=== PATIENT | female | born 1990 | race Asian ===

== ENCOUNTER 2016-11-02 00:30 | Inpatient (IN) | payer SELFPAY ==
[~2016-11-02] VITALS: Ht 154.9 cm; Wt 73.5 kg
[2016-11-02] MEDS ORDERED: MISOPROSTOL 25 MCG TAB ONE ×2 (02:50→07:10)
[2016-11-02] MEDS ORDERED: OXYTOCIN 20 UNITS in LACTATED RINGERS 1,000 ML IV SCH (02:53)
[2016-11-02] MEDS ORDERED: IBUPROFEN 800 MG TAB PO PRN (02:55)
[2016-11-02] MEDS ORDERED: NALBUPHINE 10 MG/ML AMP IVP PRN (02:55)
[2016-11-02] MEDS ORDERED: PROMETHAZINE 25 MG/ML VIAL IVP PRN (02:55)
[2016-11-02] MEDS ORDERED: METHYLERGONOVINE 0.2 MG/ML AMP IM PRN (02:55)
[2016-11-02] MEDS ORDERED: CARBOPROST 250 MCG/ML AMP IM PRN (02:55)
[2016-11-02] MEDS ORDERED: MISOPROSTOL 25 MCG TAB VG SCH (03:00)
[2016-11-02 03:01] LABS: BASOPHILS # (AUTO) 0.1 K/uL (0.00-0.22); BASOPHILS % (AUTO) 1.7 % (0.0-2.0); EOSINOPHILS # (AUTO) 0.1 K/uL (0-0.4); EOSINOPHILS % (AUTO) 2.1 % (0.0-4.0); HEMATOCRIT 35.8 % (36-48); HEMOGLOBIN 11.6 g/dL (12.0-16.0); LYMPHOCYTES % (AUTO) 20.7 % (20.5-51.1); MEAN CORPUSCULAR HEMOGLOBIN 30 pg (27-31); MEAN CORPUSCULAR HGB CONC 33 g/dL (33-37); MEAN CORPUSCULAR VOLUME 93 fL (80-94); MONOCYTES # (AUTO) 0.4 K/uL (0.8-1.0); MONOCYTES % (AUTO) 9.4 % (1.7-9.3); NEUTROPHILS # (AUTO) 3.2 K/uL (1.8-7.7); NEUTROPHILS % (AUTO) 66.1 % (42.2-75.2); PLATELET COUNT (AUTO) 139 K/uL (140-450); RED BLOOD CELL COUNT(AUTO) 3.87 MIL/uL (4.20-5.40); RED CELL DISTRIBUTION WIDTH 12.8 % (11.6-13.7); WHITE BLOOD COUNT (AUTO) 4.8 K/uL (4.8-10.8)
[2016-11-02 03:03] LABS: APPEARANCE,URINE CLEAR (CLEAR); BILIRUBIN,URINE NEGATIVE (NEGATIVE); BLOOD, URINE NEGATIVE (NEGATIVE); COLOR,URINE YELLOW (YELLOW); LEUKOCYTE ESTERASE ,URINE NEGATIVE (NEGATIVE); NITRITE, URINE NEGATIVE (NEGATIVE); PH,URINE 6.5 (5.0-9.0); UGLUCOSE NEGATIVE (NEGATIVE)
[2016-11-02 03:05] LABS: ANION GAP 12.5 (8-16); CARBON DIOXIDE 23.3 mmol/L (21-32); CREATININE 0.5 mg/dL (0.6-1.3); POTASSIUM 3.8 mmol/L (3.5-5.1)
[2016-11-02 03:12] LABS: ALBUMIN 3.1 g/dL (3.4-5.0); TOTAL BILIRUBIN 0.3 mg/dL (0.0-1.0)
[2016-11-02 03:31] VITALS: BP 96/59
--- NOTE | 2016-11-02 08:44 | NUR ---
PATIENT HAS BEEN SCREENED AND CATEGORIZED LOW NUTRITION RISK. PATIENT WILL BE SEEN WITHIN 7 DAYS OF ADMISSION. 11/08/[address]
[2016-11-02] MEDS: LACTATED RINGERS 1,000 ML IV SCH ×2 (10:01→17:41)
[2016-11-02] MEDS ORDERED: OXYTOCIN 10 UNITS/ML VIAL IM ONE (15:00)
[2016-11-02] MEDS ORDERED: NALBUPHINE HYDROCHLORIDE 10 MG/ML VIAL ONE (18:44)
[2016-11-02] MEDS ORDERED: PROMETHAZINE 25 MG/ML VIAL ONE (18:45)
[2016-11-02] MEDS ORDERED: ceFAZolin 1,000 MG VIAL ONE (23:40)
[2016-11-03] MEDS ORDERED: TRIAMCINOLONE 40 MG/ML 5ML VIAL ONE (00:24)
[2016-11-03] MEDS ORDERED: METHYLERGONOVINE 0.2 MG/ML AMP ONE ×2 (00:25→02:07)
[2016-11-03] MEDS ORDERED: OXYTOCIN 10 UNITS/ML VIAL ONE ×2 (00:25→16:53)
[2016-11-03] MEDS ORDERED: MIDAZOLAM 2 MG/2 ML VIAL ONE (00:28)
[2016-11-03] MEDS ORDERED: MORPHINE PRES FREE 10 MG/10 ML AMP IV ONE (00:29)
[2016-11-03] MEDS ORDERED: diphenhydrAMINE 50 MG/ML VIAL IVP PRN ×2 (00:55)
[2016-11-03] MEDS ORDERED: NALBUPHINE 10 MG/ML AMP IVP PRN (00:55)
[2016-11-03] MEDS ORDERED: MEPERIDINE 25 MG/ML SYR IVP PRN (00:55)
[2016-11-03] MEDS ORDERED: NALOXONE 0.4 MG/ML VIAL IVP PRN ×3 (00:55)
[2016-11-03] MEDS ORDERED: ONDANSETRON 4 MG/2 ML VIAL IVP PRN ×2 (00:55)
[2016-11-03] MEDS ORDERED: HYDROmorphone 1 MG/ML AMP IVP PRN (00:55)
[2016-11-03] MEDS ORDERED: diphenhydrAMINE 50 MG/ML VIAL ONE (01:08)
[2016-11-03] MEDS ORDERED: OXYTOCIN 20 UNITS/LR PREMIX 1,000 ML IV ONE (01:08)
[2016-11-03] MEDS ORDERED: OXYTOCIN 20 UNITS in LACTATED RINGERS 1,000 ML IV SCH ×2 (01:10→01:18)
[2016-11-03] MEDS ORDERED: MEASLES, MUMPS, AND RUBELLA 1 VIAL SQVAC PRN (01:20)
[2016-11-03] MEDS ORDERED: TEMAZEPAM 15 MG CAP PO PRN (01:20)
[2016-11-03] MEDS ORDERED: SIMETHICONE 80 MG TAB.CHEW PO PRN (01:20)
[2016-11-03] MEDS ORDERED: TRIMETHOBENZAMIDE 200 MG/2 ML SYR IM PRN (01:20)
[2016-11-03] MEDS ORDERED: IBUPROFEN 800 MG TAB PO PRN (01:20)
[2016-11-03] MEDS ORDERED: oxyCODONE/APAP 5/325 MG 1 TAB TAB PO PRN (01:20)
[2016-11-03] MEDS ORDERED: METHYLERGONOVINE 0.2 MG/ML AMP IM PRN (01:20)
[2016-11-03] MEDS ORDERED: ONDANSETRON 4 MG/2 ML VIAL ONE (01:32)
[2016-11-03] MEDS: KETOROLAC 30 MG/ML VIAL IM/IVP SCH ×3 (06:53→16:59)
[2016-11-03] MEDS: OXYTOCIN 20 UNITS in LACTATED RINGERS 1,000 ML IV SCH ×2 (10:01→16:52)
[2016-11-04 07:12] LABS: BASOPHILS % (AUTO) 0.5 % (0.0-2.0); EOSINOPHILS # (AUTO) 0.1 K/uL (0-0.4); EOSINOPHILS % (AUTO) 1.6 % (0.0-4.0); HEMATOCRIT 32.9 % (36-48); HEMOGLOBIN 10.7 g/dL (12.0-16.0); LYMPHOCYTES # (AUTO) 0.7 K/uL (2.5-16.5); LYMPHOCYTES % (AUTO) 7.8 % (20.5-51.1); MEAN CORPUSCULAR HEMOGLOBIN 30 pg (27-31); MEAN CORPUSCULAR HGB CONC 33 g/dL (33-37); MEAN CORPUSCULAR VOLUME 93 fL (80-94); MONOCYTES # (AUTO) 0.6 K/uL (0.8-1.0); MONOCYTES % (AUTO) 6.9 % (1.7-9.3); NEUTROPHILS # (AUTO) 7.7 K/uL (1.8-7.7); NEUTROPHILS % (AUTO) 83.2 % (42.2-75.2); PLATELET COUNT (AUTO) 132 K/uL (140-450); RED BLOOD CELL COUNT(AUTO) 3.54 MIL/uL (4.20-5.40); RED CELL DISTRIBUTION WIDTH 12.7 % (11.6-13.7); WHITE BLOOD COUNT (AUTO) 9.1 K/uL (4.8-10.8)
[2016-11-04] MEDS ORDERED: BETHANECHOL 25 MG TAB PO ONE (09:00)
--- NOTE | 2016-11-04 10:33 | NUR ---
AWAKE AND ALERT NO PULMONARY DISTRESS NOTED PATIENT WITH AT THIS TIME PATIENT REQUEST INCENTIVE SPIROMETRY THERAPY AT A LATER TIME
--- NOTE | 2016-11-04 11:37 | NUR ---
AWAKE AND ALERT NO PULMONARY DISTRESS NOTED TOLERATED INCENTIVE SPIROMETRY THERAPY WELL WITHOUT INCIDENT ENCOURAGE PATIENT WITH ACKNOWLEDGEMENT TO USE INCENTIVE SPIROMETRY EVERY 1-2 HOURS WHILE AWAKE
[2016-11-04] MEDS: HYDROcodone/APAP 5/325 MG 1 TAB TAB PO PRN (20:16)
[2016-11-04] MEDS: DOCUSATE SOD/SENNA 50/8.6 MG 1 TAB PO SCH (21:00)
[2016-11-05] MEDS: HYDROcodone/APAP 5/325 MG 1 TAB TAB PO PRN ×2 (10:39→18:51)
[2016-11-05] MEDS: DOCUSATE SOD/SENNA 50/8.6 MG 1 TAB PO SCH (20:44)
[2016-11-06] MEDS: HYDROcodone/APAP 5/325 MG 1 TAB TAB PO PRN (05:40)
== END 2016-11-06 15:30 | disposition home or self-care (01) | DRG 766 ==
LOC: MLD 00:30 → MFCC 11-03 02:18
PROVIDERS: ADMIT Obstetrics & Gynecology; ATTEND Obstetrics & Gynecology
PROC: 10D00Z1 Extraction of Products of Conception, Low, Open Approach (ICD-10-PCS; principal; 2016-11-02)
DX: O33.9 Maternal care for disproportion, unspecified (principal); O62.2 Other uterine inertia; Z37.0 Single live birth; Z3A.39 39 weeks gestation of pregnancy
CPT/HCPCS: 36415; 51702; 59200; 80053; 81003; 85025; 86592; 86886; 86900; 86901; C1758; J0690; J1200; J1885; J2210; J2250; J2270; J2300; J2405; J2550; J2590; J3301; J7120